=== PATIENT | female | born 1985 | race Caucasian/White ===

== ENCOUNTER 2017-07-05 16:44 | Emergency (ER) | payer BC, SELFPAY | END 2017-07-05 20:57 | disposition home or self-care (01) | PROVIDERS: Emergency Provider Emergency Medicine; Family Provider Internal Medicine; Visit Provider Emergency Medicine | DX: K59.00 Constipation, unspecified; R10.11 Right upper quadrant pain | CPT/HCPCS: 74177; 80053; 81001; 81025; 82150; 83690; 85025; 96374; 99283; J2405; Q9967 ==